=== PATIENT | male | born 1960 | race Caucasian/White ===

== ENCOUNTER → 2018-01-07 | Outpatient (CLI) | payer BC ==
[~2018-01-07] MED LIST: FLOMAX 0.40.4 MG/CAP PO; NORCO 325 MG-51 TAB PO; PERCOCET 325 MG1 TA2 PO; ZOFRAN ODT4 MG PO
== END ==
LOC: COL.RAD 12:15
DX: M51.15 Intervertebral disc disorders with radiculopathy, thoracolumbar region (principal); M48.062 Spinal stenosis, lumbar region with neurogenic claudication; M47.817 Spondylosis without myelopathy or radiculopathy, lumbosacral region

== ENCOUNTER → 2018-02-22 | Outpatient (CLI) | payer BC ==
[~2018-02-22] VITALS: Ht 180.3 cm; Wt 146.2 kg
[~2018-02-22] MED LIST changes: +HYZAAR 50-12.1 UDTAB PO; +LYRICA 75MG CAP75 MG PO; +NEURONTIN300 MG/CAP PO; +TRICOR145 MG PO
[2018-02-22 06:40] VITALS: BP 136/55; PULSE 70
[2018-02-22 08:10] VITALS: BP 146/81; PULSE 64
== END ==
LOC: COL.RAD 06:25
DX: M48.061 Spinal stenosis, lumbar region without neurogenic claudication (principal)
CPT/HCPCS: J3301

== ENCOUNTER 2018-04-22 17:00 | Outpatient (RCR) | payer BC | END 2018-05-18 17:19 | disposition home or self-care (01) | LOC: WSPT 17:00 | DX: M48.061 Spinal stenosis, lumbar region without neurogenic claudication (principal); G62.89 Other specified polyneuropathies; Z79.899 Other long term (current) drug therapy ==

== ENCOUNTER → 2018-08-02 | Outpatient (CLI) | payer BC ==
[~2018-08-02] VITALS: Ht 180.3 cm; Wt 148.1 kg
[~2018-08-02] MED LIST changes: +COZAAR 25MG25 MG/TAB PO
[2018-08-02 07:41] VITALS: BP 130/76; PULSE 65
[2018-08-02 08:41] VITALS: BP 131/74; PULSE 75
== END ==
LOC: COL.RAD 07:00
DX: M47.16 Other spondylosis with myelopathy, lumbar region (principal)
CPT/HCPCS: J3301

== ENCOUNTER → 2018-11-18 | Outpatient (CLI) | payer BC ==
[~2018-11-18] VITALS: Ht 180.3 cm; Wt 147.3 kg
[2018-11-18 07:08] VITALS: BP 126/85; PULSE 72
[2018-11-18 08:20] VITALS: BP 123/72; PULSE 67
--- NOTE | 2018-11-18 08:39 | NUR ---
PT AMBULATED TO POV. NO PAIN,NUMBNESS OT TINGLING.
== END ==
LOC: COL.RAD 06:30
DX: M46.86 Other specified inflammatory spondylopathies, lumbar region (principal); M48.061 Spinal stenosis, lumbar region without neurogenic claudication
CPT/HCPCS: J3301

== ENCOUNTER → 2019-02-14 | Outpatient (CLI) | payer BC ==
[~2019-02-14] VITALS: Ht 180.3 cm; Wt 144.2 kg
[2019-02-14 06:52] VITALS: BP 119/75; PULSE 70
[2019-02-14 07:45] VITALS: BP 120/71; PULSE 67
== END ==
LOC: COL.RAD 06:30
DX: M47.16 Other spondylosis with myelopathy, lumbar region (principal); M48.061 Spinal stenosis, lumbar region without neurogenic claudication
CPT/HCPCS: J3301

== ENCOUNTER → 2019-05-31 | Outpatient (CLI) | payer BC ==
[~2019-05-31] VITALS: Ht 180.3 cm; Wt 142.8 kg
[2019-05-31 07:26] VITALS: BP 137/75; PULSE 73
[2019-05-31 08:20] VITALS: BP 134/82; PULSE 64
--- NOTE | 2019-05-31 08:38 | NUR ---
pt out to car per wheelchair. Pt able to stand and walk without assistance pt up and into car with out difficulty.
== END ==
LOC: COL.RAD 05-27 13:30
DX: M47.16 Other spondylosis with myelopathy, lumbar region (principal)
CPT/HCPCS: J3301

== ENCOUNTER → 2019-08-18 | Outpatient (CLI) | payer BC ==
[~2019-08-18] VITALS: Ht 180.3 cm; Wt 145.6 kg
[2019-08-18 09:41] VITALS: BP 148/89; PULSE 78
[2019-08-18 10:10] VITALS: BP 135/84; PULSE 77
== END ==
LOC: COL.RAD 09:26
DX: M47.16 Other spondylosis with myelopathy, lumbar region (principal)
CPT/HCPCS: J3301

== ENCOUNTER 2020-04-23 08:00 | Outpatient (RCR) | payer BC | END 2020-04-24 14:44 | disposition home or self-care (01) | LOC: WSC 08:00 | DX: M48.062 Spinal stenosis, lumbar region with neurogenic claudication (principal) ==

== ENCOUNTER → 2020-09-11 | Outpatient (CLI) | payer BC | LOC: COL.RAD 09:01 | DX: M25.551 Pain in right hip (principal) | CPT/HCPCS: J3301; Q9967 ==

== ENCOUNTER → 2021-08-13 | Outpatient (CLI) | payer BC | LOC: COL.RAD 10:39 | DX: N18.2 Chronic kidney disease, stage 2 (mild) (principal) ==

== ENCOUNTER → 2021-10-14 | Outpatient (CLI) | payer BC | LOC: COL.RAD 10:46 | DX: N43.3 Hydrocele, unspecified (principal); N50.9 Disorder of male genital organs, unspecified ==

== ENCOUNTER → 2024-05-03 | Outpatient (CLI) | payer BC ==
[~2024-05-03] MED LIST changes: +LIPITOR 40MG TA40 MG PO; +NEURONTIN300 MG/CAP
== END ==
LOC: MHCPAIN 08:13
DX: M48.062 Spinal stenosis, lumbar region with neurogenic claudication (principal); M47.896 Other spondylosis, lumbar region; I10 Essential (primary) hypertension; E78.5 Hyperlipidemia, unspecified
CPT/HCPCS: G0463